=== PATIENT | male | born 1985 | race Caucasian/White ===

== ENCOUNTER 2021-07-27 08:09 | Emergency (ER) | payer OTHER, SELFPAY ==
[2021-07-27] VITALS (7 sets, daily range): BP systolic 128–159; BP diastolic 83–106; PULSE 72–90; RESP 11–21; TEMP 36.7; O2SAT 96–99
--- NOTE | 2021-07-27 08:22 | DI.RAD.S_ITS ---
PROCEDURE: XR CHEST 1V INDICATIONS: Chest pain TECHNIQUE: One view of the chest was acquired. COMPARISON: None. FINDINGS: Surgical changes and devices: None. Lungs and pleura: Lungs are clear. No pleural effusions or pneumothorax. Mediastinum: Mediastinal contours appear normal. Heart size is normal. Bones and chest wall: No suspicious bony lesions. Overlying soft tissues appear unremarkable. IMPRESSION: Portable chest within normal limits. Dictated by: Wing Simmons M.D. on 07/27/2021 at 7:47 Approved by: Wing Simmons M.D. on 07/27/2021 at 7:47
--- NOTE | 2021-07-27 08:23 | ED.GENADULT ---
HPI - General Adult General Chief complaint: Chest Pain Stated complaint: heart issues Time Seen by Provider: 07/27/21 08:13 Source: patient Mode of arrival: Ambulatory Limitations: no limitations History of Present Illness HPI narrative: Otherwise healthy 36-year-old male who is here for evaluation of several weeks of left-sided chest discomfort. He states that [place] could [place] see [place] until September. He does describe some shortness of breath with it. Not worse with palpation or movement but does seem to get somewhat worse with exertion. No prior long nor heart issues. He does have fatigue with exercise as well. Does not radiate. Has not tried anything for the symptoms prior to arrival. Related Data Allergies Allergy/AdvReac Type Severity Reaction Status Date / Time No Known Drug Allergies Allergy Verified 07/27/21 08:32 Review of Systems Constitutional Constitutional: Reports as per HPI and Reports system reviewed and no additional complaints, except as documented Cardiovascular Cardiovascular: Reports as per HPI and Reports system reviewed and no additional complaints, except as documented Respiratory Respiratory: Reports as per HPI and Reports system reviewed and no additional complaints, except as documented Musculoskeletal Musculoskeletal: Reports system reviewed and no additional complaints, except as documented Integumentary/Breasts Skin/Breast: Reports system reviewed and no additional complaints, except as documented Neurologic Neurologic: Reports system reviewed and no additional complaints, except as documented Hematologic/Lymphatic On Anticoagulants: No Patient History Medical History Healthy adult Social History lives independently: Yes Smoking Status: Never smoker Exam Initial Vital Signs Initial Vital Signs: Vital Signs Temperature 98.1 F 07/27/21 08:10 Pulse Rate 90 07/27/21 08:10 Respiratory Rate 20 07/27/21 08:10 Blood Pressure 159/106 H 07/27/21 08:10 Pulse Oximetry 98 07/27/21 08:10 Const General: cooperative and healthy appearing HENMT Head: normal to inspection and normocephalic Resp Effort & Inspection: normal respiratory effort Auscultation: clear to auscultation bilaterally Cardio Rate: regular rate Rhythm: regular rhythm GI Inspection: normal to inspection Skin General: no rashes or lesions noted Neuro General: patient alert, patient awake, patient oriented x3 and moves all extremities Extrem General: No edema Psych Appearance: grossly normal and well kempt Scores HEART Score Heart Score history: Slightly Suspicious Heart Score EKG: Normal Heart Score Age: < 45 years old Heart Score risk factors: No known risk factors Heart Score troponin: < or = to normal limit Heart Score Total: 0 Course Orders Ordered: ED Orders 07/27/21 08:14 EKG-12 Lead Stat 07/27/21 08:22 XR chest 1V Stat 07/27/21 08:32 Complete Blood Count AUTO DIFF Stat Comprehensive Metabolic Panel Stat Lipase Stat Troponin & CK Cardiac Panel Stat Vital Signs Vital signs: Vital Signs - 8 hr 07/27/21 08:10 Temperature 98.1 F Pulse Rate 90 Respiratory Rate 20 Blood Pressure 159/106 H Pulse Oximetry 98 Medical Decision Making Lab Data Lab results reviewed: Yes I reviewed the patient's lab results. Result diagrams: 07/27/21 08:32 07/27/21 08:32 Labs: Lab Results 07/27/21 07/27/21 Range/Units 08:32 08:32 WBC 5.8 (4.5-11.0) X10^3/uL RBC 5.67 (4.5-5.9) X10^6/uL Hgb 16.6 (13.5-17.5) g/dL Hct 48.2 (41-53) % MCV 85.1 (80-100) fL MCH 29.3 (26-34) PG MCHC 34.5 (30-36) % RDW 13.6 (11.6-14.8) % Plt Count 254 (150-400) X10^3/uL Neut % (Auto) 56.7 (50-75) % Lymph % (Auto) 31.0 (25-40) % [place] % (Auto) 10.6 (3-14) % Eos % (Auto) 1.0 L (2-4) % Baso % (Auto) 0.7 (0-2) % Neut # (Auto) 3300 (0865-6239) /uL Lymph # (Auto) 1800 (0609-1447) /uL [place] # (Auto) 600 (0-900) /uL Eos # (Auto) 100 (0-450) /uL Baso # (Auto) 0 (0-100) /uL Sodium 139 (137-145) mmol/L Potassium 4.5 (3.4-5.1) mmol/L Chloride 101 (98-107) mmol/L Carbon Dioxide 32 (22-32) mmol/L BUN 15 (9-20) mg/dL Creatinine 1.10 (0.66-1.25) mg/dL Estimated GFR > 60.0 (>60) mL/min BUN/Creatinine Ratio 13.6 (6-22) Glucose 103 H (70-100) mg/dL Calcium 10.5 H (8.4-10.2) mg/dL Total Bilirubin 0.6 (0.2-1.3) mg/dL AST 39 (17-59) IU/L ALT 71 H (<50) IU/L Alkaline Phosphatase 77 (38-126) U/L Total Creatine Kinase 112 (55-170) U/L CK-MB (CK-2) 0.55 (<2.37) ng/mL CK-MB (CK-2) Rel Index 0.5 L (1.5-5.0) % Troponin I < 0.012 (0.01-0.034) ng/mL Total Protein 8.4 H (6.3-8.2) g/dL Albumin 4.8 (3.5-5.0) g/dL Globulin 3.6 (1.7-4.1) g/dL Albumin/Globulin Ratio 1.3 (1.0-2.8) Lipase 90 (23-300) U/L Imaging Data Chest x-ray: Radiologist's Impression: [address] [address] XRay Report Signed Patient: Kevan Sanchez MR#: [id number] : 1985 Acct:[id number] Age/Sex: 36 / M Date of Service: 07/27/21 Loc: ED Accession Number: [id number] ?? Procedure: XR chest 1V Ordering Provider: Brock Goodman D.O. PROCEDURE:? XR CHEST 1V ? INDICATIONS:? Chest pain ? TECHNIQUE:? One view of the chest was acquired.? ? COMPARISON:? None. ? FINDINGS:? ? Surgical changes and devices:? None.? ? Lungs and pleura:? Lungs are clear.? No pleural effusions or pneumothorax.? ? Mediastinum:? Mediastinal contours appear normal.? Heart size is normal.? ? Bones and chest wall:? No suspicious bony lesions.? Overlying soft tissues appear unremarkable.? IMPRESSION:? ? Portable chest within normal limits. ? ? ? Dictated by: Wing Simmons M.D. on 07/27/2021 at 7:47 ? ? Approved by: Wing Simmons M.D. on 07/27/2021 at 7:47? ECG Data Attestation: I personally reviewed and interpreted this ECG as follows: Interpretation: Sinus rhythm Ventricular rate 81 Normal axis Normal QRS Normal QTC No ST T wave changes MDM Narrative Medical decision making narrative: Patient's labs, EKG, chest x-ray, history are all very reassuring. Physical exam is reassuring. Low risk heart score. Has had symptoms for the past several weeks. Low suspicion for ACS. No indication for admission to the hospital. Low suspicion for pulmonary embolism. Is PERC negative. Will have patient contact his medical department for further evaluation. He was given return precautions. Expressed understanding agreement. Discharge Plan Departure Patient Disposition: Home Clinical Impression: Atypical chest pain Instructions: DI for Atypical Chest Pain Activity Restrictions/Additional Instructions: Your workup here in the emergency department is very reassuring. You have no restrictions on your activities. Contact your primary doctor for a follow-up. Return to the emergency department for any new or worsening symptoms
[2021-07-27 08:39] LABS: Add Manual Diff / Slide Review NO; Basophils Absolute Auto 0 /uL (0-100); Basophils Percent Auto 0.7 % (0-2); Eosinophils Absolute Auto 100 /uL (0-450); Hematocrit 48.2 % (41-53); Hemoglobin 16.6 g/dL (13.5-17.5); Lymphocytes Absolute Auto 1800 /uL (1100-4500); Mean Corpuscular HGB Conc 34.5 % (30-36); Mean Corpuscular Hemoglobin 29.3 PG (26-34); Mean Corpuscular Volume 85.1 fL (80-100); Monocytes Absolute Auto 600 /uL (0-900); Monocytes Percent Auto 10.6 % (3-14); Neutrophils Absolute Auto 3300 /uL (1500-7000); Neutrophils Percent Auto 56.7 % (50-75); Platelet Count 254 X10^3/uL (150-400); Red Blood Cell Count 5.67 X10^6/uL (4.5-5.9); Red Cell Distribution Width 13.6 % (11.6-14.8); White Blood Cell Count 5.8 X10^3/uL (4.5-11.0)
[2021-07-27 08:53] LABS: Alanine Aminotransferase 71 IU/L (<50); Albumin 4.8 g/dL (3.5-5.0); Albumin Globulin Ratio 1.3 (1.0-2.8); Alkaline Phosphatase 77 U/L (38-126); Aspartate Aminotransferase 39 IU/L (17-59); BUN Creatinine Ratio 13.6 (6-22); Bilirubin Total 0.6 mg/dL (0.2-1.3); Blood Urea Nitrogen 15 mg/dL (9-20); Calcium 10.5 mg/dL (8.4-10.2); Carbon Dioxide 32 mmol/L (22-32); Chloride 101 mmol/L (98-107); Creatine Kinase 112 U/L (55-170); Estimated Glomerular Filt Rate > 60.0 mL/min (>60); Globulin 3.6 g/dL (1.7-4.1); Glucose 103 mg/dL (70-100); HEMOLYSIS < 15 (0-50); Lipase 90 U/L (23-300); Potassium 4.5 mmol/L (3.4-5.1); Sodium 139 mmol/L (137-145); Total Protein 8.4 g/dL (6.3-8.2)
[2021-07-27 09:05] LABS: Troponin I < 0.012 ng/mL (0.01-0.034)
[2021-07-27 09:08] LABS: CKMB % Relative Index 0.5 % (1.5-5.0); Creatine Kinase MB 0.55 ng/mL (<2.37)
== END 2021-07-27 09:56 | disposition home or self-care (01) ==
PROVIDERS: Emergency Provider Emergency Medicine
DX: R07.89 Other chest pain (principal)
CPT/HCPCS: 36415; 71045; 80053; 82550; 82553; 83690; 84484; 85025; 93005; 99284

== ENCOUNTER → 2021-09-09 08:19 | Outpatient (CLI) | payer OTHER, SELFPAY ==
--- NOTE | 2021-09-09 | DI.ECHO.S_ITS ---
[place] +---------+ [facility] +---------+ : : [address] : [address] : : : : [id number] : : : : Phone: [phone] Echocardiogram Report + + :Name: HIRAL JOHNSON Study Date: 09/09/2021 Height: 68.5 in : :[facility] ReadingLocation: Weight: 205 lb : : Gender: Male BSA: 2.1 m2 : :: 1985 Age: 36 yrs BP: 154/112 mmHg: :Reason For Study: CHEST PAIN : :Ordering Physician: SARIKA, : :MADELEINE Performed By: Tonya Loyd : :Referring: MADELEINE BAUM : + + Interpretation Summary The left ventricle is normal in size and wall thickness. The ejection fraction is estimated to be 60-65%. MV E/A: 1.4 Med Peak E' Albert: 7.9 cm/sec E/E' med: 9.0 The right ventricle is normal in size and function. No significant valvular pathology seen. The IVC is of normal diameter and collapses greater than 50% with a sniff. This suggests a low right atrial pressure of 3 mm Hg. BP: 154/112 mmHg. Procedure: A two-dimensional transthoracic echocardiogram with color flow and Doppler was performed. The study quality was technically adequate. There is no prior echocardiogram noted for this patient. The patient was in sinus rhythm with heart rates between 76-85 bpm during the exam. Left Ventricle: The left ventricle is normal in size and wall thickness. There is no thrombus. A false chord is noted (normal variant). The ejection fraction is estimated to be 60-65%. There are no focal wall motion abnormalities. MV E/A: 1.4 Med Peak E' Albert: 7.9 cm/sec E/E' med: 9.0. Right Ventricle: The right ventricle is normal in size and function. Atria: The left atrial size is normal. Right atrial size is normal. There is no Doppler evidence for an interatrial shunt. Mitral Valve: The mitral valve is normal in structure and function. There is trace mitral regurgitation. Aortic Valve: The aortic valve is trileaflet. The aortic valve opens well. There is no aortic valve stenosis. No aortic regurgitation is present. Tricuspid Valve: The tricuspid valve is normal in structure and function. There is trace tricuspid regurgitation. Pulmonary artery pressures cannot be estimated because of the lack of a measurable TR jet velocity but the IVC suggests a CVP of around 3 mmHg. Pulmonic Valve: The pulmonic valve leaflets are thin and pliable; valve motion is normal. There is trace pulmonic regurgitation. Great Vessels: The aortic root is normal size. The dimensions of the ascending aorta are normal. The IVC is of normal diameter and collapses greater than 50% with a sniff. This suggests a low right atrial pressure of 3 mm Hg. Pericardium/ Pleura There is no pericardial effusion. There is no pleural effusion. MMode/2D Measurements & Calculations LVIDd: 5.0 cm LVOT diam: 2.1 cm LVIDs: 3.3 cm Ao root diam: 3.0 cm FS: 34.3 % asc Aorta Diam: 3.2 cm IVSd: 0.76 cm Ao Arch Diam (Prox Trans): 2.8 cm LVPWd: 0.89 cm LV rincon. diameter/BSA (cm/m^2): 2.4 LV sys. diameter/BSA (cm/m^2): 1.6 LA A2 area: 16.7 cm2 RA long axis: 5.2 cm LA A4 area: 16.4 cm2 RA area: 14.2 cm2 LA length (vol): 5.2 cm RA vol: 32.7 ml LA vol: 44.3 ml RA : 15.7 ml/m2 LA vol index: 21.3 ml/m2 IVC diam: 1.1 cm RVD1 (basal): 3.6 cm TAPSE: 1.8 cm Doppler Measurements & Calculations Ao V2 max: 125.6 cm/sec LVOT Max Albert: 91.4 cm/sec Ao V2 mean: 92.5 cm/sec LV V1 max P.3 mmHg Ao max P.3 mmHg LV V1 VTI: 16.0 cm Ao mean P.7 mmHg MONTRELL(I,D): 2.3 cm2 Ao V2 VTI: 23.9 cm MONTRELL(V,D): 2.5 cm2 sev ratio: 0.67 MONTRELL indexed to BSA (cm^2/m^2): 1.1 MV E max albert: 70.8 cm/sec PA V2 max: 104.9 cm/sec MV A max albert: 50.5 cm/sec PA V2 mean: 82.8 cm/sec MV E/A: 1.4 PA mean P.9 mmHg Med Peak E' Albert: 7.9 cm/sec PA pr(Accel): 43.0 mmHg E/E' med: 9.0 Lat Peak E' Albert: 12.9 cm/sec E/E' lat: 5.5 E/e' average: 7.3 MV dec time: 0.20 sec SV(OT): 56.0 ml Reading Physician:11:27 AM
== END ==
DX: R07.89 Other chest pain (principal)
CPT/HCPCS: 93306

== ENCOUNTER 2025-03-21 11:01 | Emergency (ER) | payer OTHER, SELFPAY ==
[2025-03-21 11:05] VITALS: BP 134/97; PULSE 70; RESP 14; TEMP 36.1; O2SAT 96; BMI 29.2
--- NOTE | 2025-03-21 11:09 | DI.RAD.S_ITS ---
PROCEDURE: XR CHEST 1V INDICATIONS: Chest Pain TECHNIQUE: One view of the chest was acquired. COMPARISON: None. FINDINGS: Surgical changes and devices: None. Lungs and pleura: Lungs are clear. No pleural effusions or pneumothorax. Mediastinum: Mediastinal contours appear normal. Heart size is normal. Bones and chest wall: No suspicious bony lesions. Overlying soft tissues appear unremarkable. IMPRESSION: No acute cardiopulmonary abnormality is seen. Approved by: Duglas Sims M.D. on 03/21/2025 at 12:28
--- NOTE | 2025-03-21 11:11 | EKG_ITS ---
[address] [address] Test Date: 2025-03-21 Pat Name: Kevan Sanchez Department: Room: Gender: Male [place] Tier: LATIA : 1985 Requested By: Order Number: [id number] Reading MD: Maldonado Tomlinson Measurements Intervals [place] Rate: 73 P: 20 DE: 160 QRS: 8 QRSD: 96 T: 8 QT: 380 QTc: 418 Interpretive Statements Normal sinus rhythm Electronically Signed On 03-21-2025 18:30:33 PDT by Maldonado Tomlinson
[2025-03-21] MEDS: ASPIRIN 81 MG CHEW TAB 324 MG PO (11:12)
--- NOTE | 2025-03-21 11:21 | ED_ITS ---
<Statement entered by Josef Jaime DO - 03/21/25 16:39> Dr. Jaime: I was immediately available in the department for consultation. I did not actually see the patient. HPI - Chest Pain General Chief Complaint: Chest Pain Stated Complaint: Cough since March 07 Time Seen by Provider: 03/21/25 11:18 Source: patient Mode of arrival: Ambulatory Limitations: no limitations History of Present Illness HPI narrative: Mr. Sanchez is a pleasant 40-year-old male with a past medical history of hypertension, not taking antihypertensives for 3 weeks, who presents to the emergency department for cough, headache, chest pressure x2 weeks. Patient states his symptoms started on March 07 and have been constant since. He describes substernal chest pressure that is constant, nonradiating, nothing makes it better or worse. His cough however has been getting much worse and he has had multiple episodes of posttussive emesis in the morning because of this. He was taking Mucinex with no improvement of his symptoms we stopped taking this. Yesterday while mowing the lawn he became extremely short of breath and felt like his throat was getting tight, he took allergy pills and he saw his primary care doctor who prescribed him an inhaler and he states that the inhaler did help with this. He no longer feels tightness in his throat. He does become more fatigued with exercise. No lower extremity swelling or calf tenderness. Describes headache as nonfocal, pressure-like. He does not feel short of breath at rest but he does become short of breath with exercise. Denies sore throat, ear pain, abdominal pain, nausea, vomiting, diarrhea, constipation, dysuria, hematuria. He is having more frequent bowel movements. Known sick contact was his son however his son got better quickly. No personal history of cardiovascular disease. Remote having heart palpitations ever since his 2nd COVID vaccine many years ago, he had an echo on 09/09/2021 for this reason which was normal. Nonsmoker. Related Data Previous Rx's ?Medication ?Instructions ?Recorded benzonatate 100 mg capsule 100 mg PO BID-TID PRN cough #20 03/21/25 caps hydrocodone-homatropine 5 mg-1.5 1 tab PO Q6H PRN coug h #12 tabs 03/21/25 mg tablet (Hycodan (with homatropine)) prednisone 20 mg tablet 40 mg (2 x 20 mg) PO DAILY 5 days 03/21/25 #10 tabs Allergies Allergy/AdvReac Type Severity Reaction Status Date / Time No Known Drug Allergies Allergy Verified 03/21/25 11:05 Review of Systems Review of Systems ROS Unobtainable: All systems reviewed & are unremarkable except as noted in HPI and below Patient History Medical History Healthy adult Social History lives independently: Yes Smoking Status: Unknown if ever smoked Smoking Status: Unknown if ever smoked alcohol intake frequency: 0-2 drinks per day Exam Narrative Exam Narrative: GENERAL: 40 year old patient appears stated age. Well-developed patient, in no acute distress. HEAD: Atraumatic. Normocephalic. EYES: PERRL. Extraocular motions intact. No scleral icterus. No injection or drainage. NECK: Trachea midline. Cervical ROM intact. CARDIOVASCULAR: Regular rate and rhythm. RESPIRATORY: ?Nonlabored respirations. ?Speaking in clear, full sentences. ?Clear to auscultation. Breath sounds equal bilaterally. No wheezes, rales, or rhonchi. ? EXTREMITIES: No lower extremity edema or calf tenderness bilaterally. NEURO: AOx3. ?Clear speech. ?Moves all 4 extremities appropriately. SKIN: No rash or erythema of visible areas Initial Vital Signs Initial Vital Signs: Vital Signs Temperature 97.0 F L 03/21/25 11:05 Pulse Rate 70 03/21/25 11:05 Respiratory Rate 14 03/21/25 11:05 Blood Pressure 134/97 H 03/21/25 11:05 Pulse Oximetry 96 03/21/25 11:05 Oxygen Delivery Method Room Air 03/21/25 11:05 Scores HEART Score Heart Score history: Slightly Suspicious Heart Score EKG: Normal Heart Score Age: < 45 years old Heart Score risk factors: 1-2 risk factors Heart Score troponin: < or = to normal limit Heart Score Total: 1 Course Orders Ordered: ED Orders 03/21/25 11:08 EKG-12 Lead Stat 03/21/25 11:09 XR chest 1V Stat 03/21/25 11:23 Complete Blood Count AUTO DIFF Stat Comprehensive Metabolic Panel Stat D Dimer Stat Lipase Stat Magnesium Stat NT-proBNP (BNP-Adult 18+) Stat PTT Partial Thromboplastin George Stat Prothrombin Time INR Stat Troponin & CK Cardiac Panel Stat 03/21/25 11:42 Covid-19 + FLU A/B + RSV - PCR Stat 03/21/25 12:25 CT angio chest PE protocol Stat Discontinued Medications Aspirin (Aspirin 81 Mg Chew Tab) 324 mg PO NOW ONE Stop: 03/21/25 11:09 Last Admin: 03/21/25 11:12 Dose: 324 mg Documented By: JORDAN Benzonatate (Benzonatate 100 Mg Capsule) 200 mg PO NOW ONE Stop: 03/21/25 11:34 Last Admin: 03/21/25 11:44 Dose: 200 mg Documented By: RADU Sodium Chloride (Normal Saline 0.9%) 1,000 mls @ 1,000 mls/hr IV BOLUS ONE Stop: 03/21/25 13:25 Last Infusion: 03/21/25 14:11 Dose: Infused Documented By: Admin: 03/21/25 13:23 Dose: 1,000 mls/hr Documented By: ARRON Ketorolac Tromethamine (Ketorolac 30 Mg/Ml Vial) 15 mg IV NOW ONE Stop: 03/21/25 11:34 Last Admin: 03/21/25 11:44 Dose: 15 mg Documented By: RADU Prednisone (Prednisone 20 Mg Tablet) 40 mg PO NOW ONE Stop: 03/21/25 14:21 Last Admin: 03/21/25 14:28 Dose: 40 mg Documented By: ARRON Vital Signs Vital signs: Vital Signs - 8 hr 03/21/25 11:05 03/21/25 14:58 Temperature 97.0 F L Pulse Rate 70 65 Respiratory Rate 14 14 Blood Pressure 134/97 H 125/86 Pulse Oximetry 96 99 Oxygen Delivery Method Room Air Room Air MDM - Chest Pain Medical Records Data Attestation: I reviewed the patient's medical records. Lab Data 03/21/25 11:23 03/21/25 11:23 Labs: Lab Results 03/21/25 03/21/25 Range/Units 11:23 11:42 WBC 7.5 (4.5-11.0) X10^3/uL RBC 5.95 H (4.5-5.9) X10^6/uL Hgb 17.3 (13.5-17.5) g/dL Hct 51.0 (41-53) % MCV 85.6 (80-100) fL MCH 29.0 (26-34) PG MCHC 33.9 (30-36) % RDW 13.4 (11.6-14.8) % Plt Count 308 (150-400) X10^3/uL Neut % (Auto) 60.4 (50-75) % Lymph % (Auto) 28.2 (25-40) % [facility] % (Auto) 9.4 (3-14) % Eos % (Auto) 1.5 L (2-4) % Baso % (Auto) 0.5 (0-2) % Neut # (Auto) 4500 (6770-0649) /uL Lymph # (Auto) 2100 (7210-2837) /uL [facility] # (Auto) 700 (0-900) /uL Eos # (Auto) 100 (0-450) /uL Baso # (Auto) 0 (0-100) /uL PT 11.1 (9.4-12.5) SECONDS INR 1.0 (0.9-1.3) APTT 29 (25.1-36.5) SECONDS D-Dimer 513 H (<500) ng/ml Sodium 138 (137-145) mmol/L Potassium 4.3 (3.4-5.1) mmol/L Chloride 105 (98-107) mmol/L Carbon Dioxide 26 (22-32) mmol/L BUN 25 H (9-20) mg/dL Creatinine 0.98 (0.66-1.25) mg/dL Estimated GFR > 60 (>60) mL/min BUN/Creatinine Ratio 25.5 H (6-22) Glucose 109 H (70-99) mg/dL Calcium 9.0 (8.4-10.2) mg/dL Magnesium 2.2 (1.6-2.3) mg/dL Total Bilirubin 0.5 (0.2-1.3) mg/dL AST 39 (17-59) IU/L ALT 54 H (<50) IU/L Alkaline Phosphatase 69 (38-126) U/L Total Creatine Kinase 259 H (55-170) U/L Troponin I < 0.012 (0.01-0.034) ng/mL NT-Pro-B Natriuret Pep < 20 (<125) pg/mL Total Protein 8.2 (6.3-8.2) g/dL Albumin 4.7 (3.5-5.0) g/dL Globulin 3.5 (1.7-4.1) g/dL Albumin/Globulin Ratio 1.3 (1.0-2.8) Lipase 73 (23-300) U/L SARS-CoV-2 (PCR) Negative (Negative) Influenza A (RT-PCR) Flu a negative (NEGATIVE) Influenza B (RT-PCR) Flu b negative (NEGATIVE) RSV (PCR) Negative (Negative) Imaging Data Chest CTA: Radiologist's Impression: PROCEDURE: CT ANGIO CHEST PE PROTOCOL INDICATIONS: Cough, CP, SOB, pos dimer TECHNIQUE: After the administration of intravenous contrast, 2 mm thick sections acquired from the pulmonary apices to the posterior costophrenic angles. 3-dimensional maximum intensity projection (MIP) coronal and sagittal reformats were then acquired through the thorax. For radiation dose reduction, the following was used: automated exposure control, adjustment of mA and/or kV according to patient size. COMPARISON: None. FINDINGS: Image quality: Diagnostic. Pulmonary arteries: Pulmonary arteries are normal in size, and demonstrate no intraluminal filling defects to suggest central pulmonary embolism. Lower Neck: No enlarged lymph nodes. Thyroid: 2 cm left thyroid nodule. Axillae: No enlarged lymph nodes. Chest Wall: Unremarkable. Bones: Unremarkable. Lungs and Pleura: No pneumothorax or pleural effusions. No consolidation or suspicious nodules. Heart: Heart size is normal. No pericardial effusion. Thoracic Vessels: No aortic aneurysm. Mediastinum and Pretty: No enlarged lymph nodes. Esophagus: No wall thickening. No hiatal hernia. Upper Abdomen: Visualized upper abdomen solid organs and bowel loops appear normal. IMPRESSION: No pulmonary embolus. No acute cardiopulmonary process. 2 cm left thyroid nodule. Comment: Recommend nonemergent thyroid ultrasound. Dictated by: Duane Mcconnell M.D. on 03/21/2025 at 13:35 Approved by: Duane Mcconnell M.D. on 03/21/2025 at 13:48 ECG Data Interpretation: ECG reveals normal sinus rhythm with a rate of 73 beats per minute. No ST segment elevations. No axis deviation. MDM Narrative Medical decision making narrative: 40-year-old male with a past medical history of hypertension, not taking antihypertensives for 3 weeks, who presents to the emergency department for cough, headache, chest pressure x2 weeks. Differential diagnosis includes but is not limited to viral syndrome, bronchitis, pneumonia, ACS, ID, PE, reactive airway disease, myocarditis, pericarditis, costochondritis, etc. On exam the patient is in no acute distress, nontoxic-appearing, all vital signs within normal limits. Lungs are clear to auscultation bilaterally. He does have a frequent dry cough during exam. Cough is getting worse over the last 2 weeks, chest pressure is actually getting better over the last 2 weeks. No history of lung disease, cardiovascular disease or smoking. Chest pain order set initiated in triage, will add on viral swab, D-dimer for chest pain associated with shortness of breath, Tessalon Perles for cough, Toradol for pain. Labs reveal elevated D-dimer 513, will obtain CTA chest. Negative troponin. Negative BNP. Normal WBC count 7.5, hemoglobin 17.3 hematocrit 51.0. Platelets 308. Normal PT, INR, PTT. Normal sodium 138 potassium 4.3. Slight elevation BUN 25 normal creatinine 0.98. BUN creatinine ratio is elevated 25.5. Glucose 109. Slight elevation in total creatinine kinase 259. Normal lipase 73. CTA reveals no pulmonary embolus, no acute cardiopulmonary process, 2 cm left thyroid nodule. Results were printed and discussed with the patient, advised nonemergent thyroid ultrasound. Discussed all lab work and imaging findings with the patient. He is feeling better. Suspect symptoms related to viral bronchitis, no indication for antibiotics at this time. We will treat with prednisone, benzonatate, and Hycodan as needed for severe coughing. Discussed risks of narcotics. Patient was provided with printed script of Hycodan as requested as this is often not available at all pharmacies. Discussed follow up with PCP and strict ED return precautions. Patient verbalized understanding of all information is agreeable with the plan. He is stable for discharge home. Discharge Plan Departure Patient Disposition: Home Clinical Impression: Bronchitis, Thyroid nodule Cough Qualifiers: Cough type: acute Qualified Code(s): R05.1 - Acute cough Instructions: DI for Acute Bronchitis Activity Restrictions/Additional Instructions: Dear Laura, Thank you for coming to the emergency department. Today you were evaluated for cough, chest pain, headache. Your workup today did not reveal any heart or lung problems, or bacterial pneumonia. You tested negative for COVID/flu a/flu B/RSV. Your CT scan did however reveal a thyroid nodule, and it is important to follow up with your primary care doctor and have a thyroid ultrasound. At this time your symptoms are consistent with bronchitis. You have been prescribed a steroid to help reduce inflammation in addition to cough medicine. I have also provided you with a printed script for an opioid cough medicine, please use this as needed for severe coughing or pain but do not take more than prescribed. You have been prescribed a short course of narcotic medications. These are potentially dangerous and addictive medications that should be used carefully. While on these medications you cannot drive or operate heavy machinery. Additionally, you cannot sign legal documents or perform any duties such as this. Many people get constipated on narcotic medications so it would be advisable to discuss stool softeners with the pharmacist when you cone picker your prescription. Please understand that we cannot provide further refills of narcotics or controlled substances through the ED and your pain management will need to be through your Primary Care Provider Please follow up with your primary care doctor within the next 2-3 days for ER follow-up. (If you do not have a PCP you can call [phone]. ?to schedule an appointment with an [facility] Primary Care Provider) IF YOU DEVELOP ANY NEW OR WORSENING SYMPTOMS, RETURN TO THE ER! Please read the attached instructions, they highlight more specific treatments and interventions for you at home. Thank you for letting me participate in your care, Georgette Collins PA-C Prescriptions: New prednisone 20 mg tablet 40 mg PO DAILY 5 Days Qty: 10 0RF hydrocodone-homatropine [Hycodan (with homatropine)] 5-1.5 mg tablet 1 tab PO Q6H PRN (Reason: cough) Qty: 12 0RF benzonatate 100 mg capsule 100 mg PO BID-TID PRN (Reason: cough) Qty: 20 0RF Referrals: Zay Buckner [Primary Care Provider, Medical] Stand Alone Forms: Patient Portal/API, Work Release Note
[2025-03-21 11:33] LABS: Add Manual Diff / Slide Review NO; Hematocrit 51.0 % (41-53); Hemoglobin 17.3 g/dL (13.5-17.5); Lymphocytes Absolute Auto 2100 /uL (1100-4500); Mean Corpuscular HGB Conc 33.9 % (30-36); Mean Corpuscular Hemoglobin 29.0 PG (26-34); Mean Corpuscular Volume 85.6 fL (80-100); Platelet Count 308 X10^3/uL (150-400)
[2025-03-21 11:43] LABS: INR 1.0 (0.9-1.3); Prothrombin Time 11.1 SECONDS (9.4-12.5)
[2025-03-21] MEDS: BENZONATATE 100 MG CAPSULE 200 MG PO (11:44)
[2025-03-21] MEDS: KETOROLAC 30 MG/ML VIAL 15 MG IV (11:44)
[2025-03-21 11:45] LABS: PTT Partial Thromboplastin Tim 29 SECONDS (25.1-36.5)
[2025-03-21 11:53] LABS: Alanine Aminotransferase 54 IU/L (<50); Albumin 4.7 g/dL (3.5-5.0); Albumin Globulin Ratio 1.3 (1.0-2.8); Alkaline Phosphatase 69 U/L (38-126); Blood Urea Nitrogen 25 mg/dL (9-20); Calcium 9.0 mg/dL (8.4-10.2); Carbon Dioxide 26 mmol/L (22-32); Chloride 105 mmol/L (98-107); Creatine Kinase 259 U/L (55-170); Estimated Glomerular Filt Rate > 60 mL/min (>60); Globulin 3.5 g/dL (1.7-4.1); Glucose 109 mg/dL (70-99); HEMOLYSIS 16 (0-50); Lipase 73 U/L (23-300); Magnesium 2.2 mg/dL (1.6-2.3); Potassium 4.3 mmol/L (3.4-5.1); Sodium 138 mmol/L (137-145); Total Protein 8.2 g/dL (6.3-8.2)
[2025-03-21 12:04] LABS: NT-proBNP (BNP-Adult 18+) < 20 pg/mL (<125); Troponin I < 0.012 ng/mL (0.01-0.034)
--- NOTE | 2025-03-21 12:25 | DI.CT.S_ITS ---
PROCEDURE: CT ANGIO CHEST PE PROTOCOL INDICATIONS: Cough, CP, SOB, pos dimer TECHNIQUE: After the administration of intravenous contrast, 2 mm thick sections acquired from the pulmonary apices to the posterior costophrenic angles. 3-dimensional maximum intensity projection (MIP) coronal and sagittal reformats were then acquired through the thorax. For radiation dose reduction, the following was used: automated exposure control, adjustment of mA and/or kV according to patient size. COMPARISON: None. FINDINGS: Image quality: Diagnostic. Pulmonary arteries: Pulmonary arteries are normal in size, and demonstrate no intraluminal filling defects to suggest central pulmonary embolism. Lower Neck: No enlarged lymph nodes. Thyroid: 2 cm left thyroid nodule. Axillae: No enlarged lymph nodes. Chest Wall: Unremarkable. Bones: Unremarkable. Lungs and Pleura: No pneumothorax or pleural effusions. No consolidation or suspicious nodules. Heart: Heart size is normal. No pericardial effusion. Thoracic Vessels: No aortic aneurysm. Mediastinum and Pretty: No enlarged lymph nodes. Esophagus: No wall thickening. No hiatal hernia. Upper Abdomen: Visualized upper abdomen solid organs and bowel loops appear normal. IMPRESSION: No pulmonary embolus. No acute cardiopulmonary process. 2 cm left thyroid nodule. Comment: Recommend nonemergent thyroid ultrasound. Dictated by: Duane Mcconnell M.D. on 03/21/2025 at 13:35 Approved by: Duane Mcconnell M.D. on 03/21/2025 at 13:48
[2025-03-21 12:51] LABS: Influenza A - CEPHEID Flu A NEGATIVE (NEGATIVE); Influenza B - CEPHEID Flu B NEGATIVE (NEGATIVE)
[2025-03-21 12:52] LABS: COVID-19 CEPHEID 4-PLEX PCR Negative (Negative)
[2025-03-21] MEDS: SODIUM CHLORIDE 0.9% 1,000 ML 1000 ML IV (13:23)
[2025-03-21 14:58] VITALS: BP 125/86; PULSE 65; RESP 14; O2SAT 99
== END 2025-03-21 15:12 | disposition home or self-care (01) ==
PROVIDERS: Student in an Organized Health Care Education/Training Program; Emergency Provider Physician Assistant
DX: J20.9 Acute bronchitis, unspecified (principal); R05.1 Acute cough; E04.1 Nontoxic single thyroid nodule; R51.9 Headache, unspecified
CPT/HCPCS: 36415; 71045; 71275; 80053; 82550; 83690; 83735; 83880; 84484; 85025; 85379; 85610; 85730; 87637; 93005; 96361; 96374; 99284; J1885

== ENCOUNTER → 2025-04-02 14:46 | Outpatient (CLI) | payer OTHER, SELFPAY | LOC: RESP 14:46 | PROVIDERS: Referring Provider Student in an Organized Health Care Education/Training Program; Visit Provider Student in an Organized Health Care Education/Training Program | DX: R05.9 Cough, unspecified (principal); R06.2 Wheezing | CPT/HCPCS: 94060; 94726; 94729 ==